=== PATIENT | male | born 1965 | race African-American/Black ===

== ENCOUNTER 2018-07-02 11:12 | Emergency (ER) | payer OTHER ==
[~2018-07-02] VITALS: Ht 170.2 cm; Wt 78.4 kg
[2018-07-02 11:22] VITALS: BP 124/75
[2018-07-02 11:54] LABS: BASOPHILS % (AUTO) 0 % (0-1); EOSINOPHILS % (AUTO) 0 % (1-7); LYMPHOCYTES # (AUTO) 0.71 x10^3/uL (1-3.4); LYMPHOCYTES % (AUTO) 11 % (22-44); MD NO; MEAN CORPUSCULAR HEMOGLOBIN 29.4 pg (27.5-34.5); MEAN CORPUSCULAR HGB CONC 33.8 g/dL (33.2-36.2); MEAN PLATELET VOLUME 8.1 fL (7.4-10.4); MONOCYTES # (AUTO) 0.63 x10^3/uL (0.2-0.8); MONOCYTES % (AUTO) 10 % (2-9); NEUTROPHILS % (AUTO) 78 % (42-75); PLATELET COUNT 156 x10^3/uL (130-400); RED BLOOD COUNT 5.11 x10^6/uL (4.38-5.82); RED CELL DISTRIBUTION WIDTH 13.2 % (9.4-14.8)
[2018-07-02 12:08] LABS: CHLORIDE 99 mmol/L (98-107)
[2018-07-02 12:16] LABS: ALANINE AMINOTRANSFERASE 58 U/L (12-78); ALBUMIN 3.4 g/dL (3.4-5.0); ALKALINE PHOSPHATASE 120 U/L (45-117); ANION GAP 8 mmol/L (5-15); BILIRUBIN,TOTAL 0.6 mg/dL (0.2-1.0); CALCIUM 8.4 mg/dL (8.5-10.1); CREATININE 1.05 mg/dL (0.7-1.3); TOTAL PROTEIN 7.7 g/dL (6.4-8.2)
[2018-07-02 12:18] LABS: RAPID INFLUENZA A Negative (Negative); RAPID INFLUENZA B Negative (Negative)
[2018-07-02] MEDS ORDERED: DICYCLOMINE 20 MG TABLET ONE (13:25)
[2018-07-02] MEDS ORDERED: ONDANSETRON ODT 4 MG ONE (13:25)
[2018-07-02] MEDS ORDERED: ONDANSETRON ODT 4 MG PO ONE (13:30)
[2018-07-02] MEDS ORDERED: DICYCLOMINE 20 MG TABLET PO ONE (13:30)
== END 2018-07-02 13:34 | disposition home or self-care (01) ==
LOC: ED 11:40
DX: R10.84 Generalized abdominal pain (principal); R50.9 Fever, unspecified; R11.0 Nausea
CPT/HCPCS: 36415; 71045; 80053; 84145; 85025; 87400; 99284; Q0162